=== PATIENT | female | born 1990 | race Caucasian/White ===

== ENCOUNTER 2020-04-26 13:10 | Emergency (ER) | payer MEDICAID ==
[~2020-04-26] VITALS: Ht 149.9 cm; Wt 56.0 kg
[2020-04-26 13:13] VITALS: BP 156/103
[2020-04-26] MEDS ORDERED: TETANUS, DIPHTHERIA, PERTUSSIS VAC/PF 0.5ML (>7YR OLD) IM ONE (14:45)
[2020-04-26] MEDS ORDERED: BACITRACIN ZINC OINT UDPKT TOP ONE (14:45)
[2020-04-26] MEDS ORDERED: HYDROCODONE/ACETAMINOPHEN 5/325MG TABLET PO ONE (14:45)
[2020-04-26] MEDS ORDERED: LIDOCAINE 1%/EPI 1:100,000 10 ML VIAL IJ ONE (14:45)
== END 2020-04-26 16:10 | disposition home or self-care (01) ==
LOC: ER 13:10
DX: S61.412A Laceration without foreign body of left hand, initial encounter (principal); W26.8XXA Contact with other sharp object(s), not elsewhere classified, initial encounter; Y93.89 Activity, other specified; Y92.89 Other specified places as the place of occurrence of the external cause; Y99.8 Other external cause status
CPT/HCPCS: 12001; 73120; 81025; 90471; 90715; 99283; J3490

== ENCOUNTER 2024-06-23 22:39 | Emergency (ER) | payer MEDICAID ==
[~2024-06-23] VITALS: Ht 149.9 cm; Wt 60.0 kg
[2024-06-23 23:24] VITALS: O2SAT 98
[2024-06-23 23:35] VITALS: BP 127/98; PULSE 99; RESP 16; TEMP 98.2; O2SAT 99
== END 2024-06-24 00:15 | disposition home or self-care (01) ==
LOC: ER 22:39
DX: T78.02XA Anaphylactic reaction due to shellfish (crustaceans), initial encounter (principal); R51.9 Headache, unspecified; X58.XXXA Exposure to other specified factors, initial encounter
CPT/HCPCS: 99281